=== PATIENT | female | born 1945 | race Caucasian/White ===

== ENCOUNTER 2016-09-10 21:58 | Emergency (ER) | payer OTHER ==
[~2016-09-10] VITALS: Ht 154.9 cm; Wt 73.0 kg
[2016-09-10] MEDS ORDERED: ACETAMINOPHEN ES 500 MG TABLET ONE (23:15)
[2016-09-10] MEDS ORDERED: ACETAMINOPHEN 325 MG TABLET PO ONE (23:30)
[2016-09-11 00:41] VITALS: BP 174/82
== END 2016-09-11 00:43 | disposition home or self-care (01) ==
LOC: ER 22:03
DX: M54.5 Low back pain (principal); G89.29 Other chronic pain; E11.9 Type 2 diabetes mellitus without complications
CPT/HCPCS: 99283; A4606; Z7610

== ENCOUNTER 2021-03-19 16:53 | Inpatient (IN) | payer OTHER ==
[~2021-03-19] VITALS: Ht 162.6 cm; Wt 62.1 kg
--- NOTE | 2021-03-19 17:30 | NUR ---
ER BED 3, C/O BACK PAIN, PLACED TO MONITOR, SALINE LOCK ESTABLISHED
--- NOTE | 2021-03-19 17:38 | NUR ---
SPOKE TO CAREGIVER ERICA, STATES CAN NO LONGER TAKE CARE OF THE PATIENT BECAUSE SHE USES DIAPER NOW. SO THEY WANT HER TO GO TO [facility].
--- NOTE | 2021-03-19 17:56 | NUR ---
WENT TO CT
[2021-03-19 18:21] LABS: BASOPHILS # (AUTO) 0.1 K/uL (0.0-0.2); BASOPHILS % (AUTO) 0.8 % (0.0-2.0); HEMATOCRIT 37 % (33-45); HEMOGLOBIN 12.2 g/dL (11.5-14.8); LYMPHOCYTES # (AUTO) 0.8 K/uL (0.8-4.8); LYMPHOCYTES % (AUTO) 10.5 % (20.0-44.0); MEAN CORPUSCULAR HGB CONC 33 g/dl (31.0-36.0); MEAN CORPUSCULAR VOLUME 86 fL (82-100); MONOCYTES % (AUTO) 12.6 % (2.0-12.0); NEUTROPHILS # (AUTO) 5.9 K/uL (1.8-8.9); NEUTROPHILS % (AUTO) 74.1 % (43.0-81.0); PLATELET COUNT (AUTO) 509 K/uL (150-450); RED BLOOD CELL COUNT(AUTO) 4.34 MIL/uL (4.0-5.2)
[2021-03-19 18:43] LABS: CALCIUM, SERUM 9.2 mg/dL (8.5-10.1); CREATININE 0.6 mg/dL (0.6-1.3)
[2021-03-19 18:49] LABS: ALBUMIN 2.5 g/dL (3.4-5.0); BILIRUBIN,DIRECT 0.1 mg/dL (0.0-0.2); BILIRUBIN,TOTAL 0.4 mg/dL (0.2-1.0); TOTAL PROTEIN, SERUM 7.1 g/dL (6.4-8.2)
--- NOTE | 2021-03-19 18:50 | NUR ---
PT UNABLE TO GIVE URINE, INFORMED
--- NOTE | 2021-03-19 18:51 | NUR ---
F/U UP CHEMISTRY, SPOKE TO JOHN
--- NOTE | 2021-03-19 18:56 | NUR ---
GAVE MOVESHEET TO ADMITTING FOR INSURANCE AUTH
[2021-03-19] MEDS ORDERED: IV NS 0.9% 1,000 ML IV ONE (19:00)
--- NOTE | 2021-03-19 19:00 | NUR ---
EMERGENCY ROOM PHYSICIAN ASSISTANT/MED RECON PATIENT UNABLE TO PROVIDE INFORMATION RE: HOME MEDICATION. CALLED AND SPOKE WITH CAREGIVER, ERICA. STATED " I DON'T HAVE IT WITH ME RIGHT NOW, BUT I WILL CALL OR VISIT ALICIA. TO PROVIDE THE INFORMATION.
--- NOTE | 2021-03-19 19:08 | NUR ---
IV removed. Catheter intact and site benign. Pressure and 4x4 applied to site. No bleeding noted.Patient discharged to home in stable condition. Written and verbal after care instructions given. Patient verbalizes understanding of instruction.
--- NOTE | 2021-03-19 19:36 | NUR ---
COVID SWAB COLLECTED AND SENT TO LAB
--- NOTE | 2021-03-19 20:43 | NUR ---
Patient is resting comfortably in bed with eyes closed. Easily aroused. VSS
[2021-03-19] MEDS ORDERED: Z GUARD REMEDY 2 OZ OINT TP PRN (21:30)
[2021-03-19] MEDS ORDERED: ONDANSETRON HCL/PF 4 MG/2 ML VIAL IVP PRN (21:30)
[2021-03-19] MEDS ORDERED: HYDROCODONE/APAP 5/325MG TABLET PO PRN (21:30)
[2021-03-19] MEDS ORDERED: MAGNESIUM HYDROXIDE 30 ML UDC PO PRN (21:30)
[2021-03-19] MEDS ORDERED: MORPHINE SULFATE INJ 2 MG/ML DISP.SYRIN IV PRN (21:30)
[2021-03-19] MEDS ORDERED: MAG HYDROX/AL HYDROX/SIMETH 30 ML UDC PO PRN (21:30)
[2021-03-19] MEDS ORDERED: ACETAMINOPHEN 325 MG TABLET PO PRN (21:30)
--- NOTE | 2021-03-19 21:44 | NUR ---
report given to drake on third floor
--- NOTE | 2021-03-19 22:02 | NUR ---
pt was transferred to [facility] in stable condition.
--- NOTE | 2021-03-19 22:32 | NUR ---
MS CABRAL Opening/Admitting Notes Patient arrived via [facility] at approximately 2102 accompanied by an EMT. Patient was not able to ambulate and was transferred from the [facility] to the bed with assistance. Patient was oriented to the staff and the unit. Patient was alert and oriented x1-2. Patient's on room air with no respiratory distress noted. Patient has an IV access on her left hand gauge #20, which is intact, patent, and flushing well. Patient's in no acute distress at this time. Will continue to monitor the patient. Addendum: 03/19/21 at 2324 by NATALIO GARCIA RN Report given by Nurse Abel
[2021-03-20] MEDS ORDERED: DEXTROSE 50%-WATER 50 ML DISP.SYRIN IV PRN (01:00)
[2021-03-20 03:16] VITALS: BP 146/89
[2021-03-20] MEDS: IV NS 0.9% 1,000 ML IV PRN (03:27)
--- NOTE | 2021-03-20 06:26 | NUR ---
MS RN Notes Patient's blood sugar at 0624 was 92mg/dL. Will continue to monitor the patient.
[2021-03-20 06:29] LABS: BASOPHILS # (AUTO) 0.1 K/uL (0.0-0.2); BASOPHILS % (AUTO) 1.1 % (0.0-2.0); EOSINOPHILS % (AUTO) 3.4 % (0.0-6.0); HEMATOCRIT 35 % (33-45); HEMOGLOBIN 11.8 g/dL (11.5-14.8); LYMPHOCYTES # (AUTO) 0.9 K/uL (0.8-4.8); LYMPHOCYTES % (AUTO) 16.7 % (20.0-44.0); MEAN CORPUSCULAR HGB CONC 33 g/dl (31.0-36.0); MEAN CORPUSCULAR VOLUME 86 fL (82-100); MONOCYTES # (AUTO) 0.8 K/uL (0.1-1.30); MONOCYTES % (AUTO) 15.6 % (2.0-12.0); NEUTROPHILS # (AUTO) 3.4 K/uL (1.8-8.9); NEUTROPHILS % (AUTO) 63.2 % (43.0-81.0); PLATELET COUNT (AUTO) 449 K/uL (150-450); WHITE BLOOD COUNT (AUTO) 5.4 K/uL (4.3-11.0)
[2021-03-20] MEDS: BLOOD SUGAR DIAGNOSTIC 1 EACH STRIP IN SCH ×4 (06:35→22:30)
--- NOTE | 2021-03-20 06:51 | NUR ---
MS RN Closing Notes Patient was last seen awake in bed resting. Patient was alert and oriented x1-2. Patient's on room air with no respiratory distress noted. Patient has an IV access on her left hand gauge #20 which is running normal saline at 50ml/hour. Patient's in no acute distress at this time. Will endorse care to the day shift nurse.
[2021-03-20 07:32] LABS: CALCIUM, SERUM 9.3 mg/dL (8.5-10.1); CARBON DIOXIDE 23 mmol/L (21-32); CHLORIDE 101 mmol/L (98-107); CREATININE 0.5 mg/dL (0.6-1.3); GLUCOSE 85 mg/dL (74-106); MAGNESIUM 1.5 mg/dL (1.8-2.4); PHOSPHORUS 3.2 mg/dL (2.5-4.9); POTASSIUM 3.6 mmol/L (3.5-5.1); SODIUM SERUM 135 mmol/L (136-145); UREA NITROGEN, BLOOD 9 mg/dL (7-18)
[2021-03-20 07:46] LABS: CHOLESTEROL 131 mg/dL (<200); HDL CHOLESTEROL 24 mg/dL (40-60); LDL 78 mg/dL (0-99); THYROID STIMULATING HORMONE 1.795 uIU/mL (0.358-3.74); TRIGLYCERIDES 113 mg/dL (30-150)
[2021-03-20 08:00] VITALS: BP 137/80
[2021-03-20] MEDS: PANTOPRAZOLE 40 MG TABLET.DR PO SCH (08:54)
[2021-03-20] MEDS: NICOTINE PATCH (7MG) 7 MG PATCH.TD24 TD SCH (08:54)
[2021-03-20] MEDS: INSULIN REGULAR, HUMAN 100 UNIT/ML 3 ML VIAL SQ PRN ×3 (12:35→22:29)
[2021-03-20] MEDS: Magnesium 1GM/D5W 100ML PREMIX 100 ML IV SCH ×2 (12:52→14:27)
[2021-03-20 16:00] VITALS: BP 137/79
--- NOTE | 2021-03-20 16:30 | NUR ---
UA SENT.VERY CONFUSED. SIDE RAILS UP.BED ALARM ON.
--- NOTE | 2021-03-20 16:54 | NUR ---
MG REPLACEMENT GIVEN IV,VERY CONFUSED AND WAITING STIIL TO OBTAIN MED LIST FROM CAREGIVER.SIDE4 RAILS UP. BED ALARM ON.
[2021-03-20] MEDS ORDERED: ATOR10TA PO (17:51)
[2021-03-20] MEDS ORDERED: METF-440 PO (17:51)
[2021-03-20] MEDS ORDERED: CARV12.52 PO (17:51)
[2021-03-20] MEDS ORDERED: LEVE500T20 PO (17:51)
[2021-03-20] MEDS ORDERED: BENA10TA74 PO (17:51)
[2021-03-20] MEDS ORDERED: HYDR-4303 PO (17:51)
[2021-03-20] MEDS ORDERED: HYDR-3980 PO (17:51)
[2021-03-20] MEDS ORDERED: ACET-868 PO (17:52)
[2021-03-20] MEDS ORDERED: METO25TA6 PO (17:53)
[2021-03-20] MEDS ORDERED: FAMO20TA8 PO (17:53)
[2021-03-20 19:13] LABS: BILIRUBIN,URINE NEGATIVE (NEGATIVE); COLOR,URINE YELLOW (YELLOW); LEUKOCYTE ESTERASE ,URINE SMALL (NEGATIVE); NITRITE, URINE NEGATIVE (NEGATIVE); PH,URINE 5.5 (5.0-8.0); PROTEIN,URINE NEGATIVE (NEGATIVE); UGLUCOSE 500 MG/DL mg/dL (NEGATIVE)
--- NOTE | 2021-03-20 19:34 | NUR ---
MS RN Opening Notes Patient was last seen awake in bed resting. Patient was alert and oriented x1-2. Patient's on room air with no respiratory distress noted. Patient has an IV access on her left hand gauge #20 which is running normal saline at 50ml/hour. Patient's in no acute distress at this time. Safety measures in place: Bed locked, bed alarm on, side rails up x3, and call light within reach. Will continue to monitor the patient.
[2021-03-20 19:36] LABS: BACTERIA,URINE 4+ /HPF (None Seen); RBC,URINE 21-50 /HPF (0-2); SQUAMOUS EPITHELIAL CELL,UR Few /HPF (None Seen); WBC,URINE 51-80 /HPF (0-3)
[2021-03-20 20:00] VITALS: BP 136/84
--- NOTE | 2021-03-20 22:04 | NUR ---
MS RN Notes Patient's blood sugar at 2201 was 140mg/dL.
[2021-03-21 06:22] LABS: BASOPHILS # (AUTO) 0.1 K/uL (0.0-0.2); EOSINOPHILS % (AUTO) 2.6 % (0.0-6.0); HEMATOCRIT 35 % (33-45); HEMOGLOBIN 11.6 g/dL (11.5-14.8); LYMPHOCYTES # (AUTO) 0.9 K/uL (0.8-4.8); LYMPHOCYTES % (AUTO) 14.8 % (20.0-44.0); MEAN CORPUSCULAR HGB CONC 34 g/dl (31.0-36.0); MEAN CORPUSCULAR VOLUME 86 fL (82-100); MONOCYTES # (AUTO) 0.9 K/uL (0.1-1.30); MONOCYTES % (AUTO) 15.3 % (2.0-12.0); NEUTROPHILS % (AUTO) 66.3 % (43.0-81.0); PLATELET COUNT (AUTO) 475 K/uL (150-450); RED BLOOD CELL COUNT(AUTO) 4.04 MIL/uL (4.0-5.2); WHITE BLOOD COUNT (AUTO) 6.1 K/uL (4.3-11.0)
[2021-03-21] MEDS: IV NS 0.9% 1,000 ML IV PRN (06:27)
[2021-03-21 06:39] LABS: CALCIUM, SERUM 8.7 mg/dL (8.5-10.1); CREATININE 0.6 mg/dL (0.6-1.3); MAGNESIUM 1.7 mg/dL (1.8-2.4); PHOSPHORUS 2.6 mg/dL (2.5-4.9); POTASSIUM 3.8 mmol/L (3.5-5.1)
[2021-03-21] MEDS: BLOOD SUGAR DIAGNOSTIC 1 EACH STRIP IN SCH ×4 (07:24→21:09)
[2021-03-21] MEDS: INSULIN REGULAR, HUMAN 100 UNIT/ML 3 ML VIAL SQ PRN ×4 (07:25→21:11)
--- NOTE | 2021-03-21 07:32 | NUR ---
RN OPENING NOTE PT AWAKE IN BED RESTING. ON RA WITH NO SOB OR RESPIRATORY DISTRESS PRESENT. A/O X2 AND ARMENIAN SPEAKING. NO COMPLAINT OF PAIN OR NAUSEA PRESENT. NO CIRCUIT BREAKER ASSEMBLER PRESENT. NO EDEMA PRESENT. ON BEDREST WITH DIAPER PRESENT. SKIN IS INTACT.ON CARDIAC DIET. IV PRESENT ON L HAND 20G WITH NS RUNNING AT 50 ML/HR. LABS AND ORDERS REVIEWED. SAFETY MEASURES IN PLACE. SIDE RAILS RAISED. BED LOWERED. CALL LIGHT WITHIN REACH. WILL CONTINUE TO MONITOR.
[2021-03-21 08:00] VITALS: BP 142/100
[2021-03-21] MEDS: NICOTINE PATCH (7MG) 7 MG PATCH.TD24 TD SCH (08:52)
[2021-03-21] MEDS: PANTOPRAZOLE 40 MG TABLET.DR PO SCH (08:52)
[2021-03-21] MEDS: Magnesium 1GM/D5W 100ML PREMIX 100 ML IV SCH ×2 (08:52→10:53)
[2021-03-21 11:19] LABS: EOSINOPHILS % (MANUAL) 3 % (0-4); LYMPHOCYTES % (MANUAL) 16 % (16-48); MONOCYTES % (MANUAL) 13 % (0-11.0); NEUTROPHILS % (MANUAL) 62 (42-76); REACTIVE LYMPHOCYTES 6 % (0-0)
[2021-03-21 16:00] VITALS: BP 102/62
--- NOTE | 2021-03-21 19:06 | NUR ---
RN CLOSING NOTE PT AWAKE IN BED RESTING. ON RA WITH NO SOB OR RESPIRATORY DISTRESS PRESENT. A/O X2 AND ARABIC SPEAKING. NO COMPLAINT OF PAIN OR NAUSEA PRESENT. NO BOUNTY HUNTER PRESENT. NO EDEMA PRESENT. ON BEDREST WITH DIAPER PRESENT. SKIN IS INTACT.ON CARDIAC DIET. IV PRESENT ON L HAND 20G WITH NS RUNNING AT 50 ML/HR. LABS AND ORDERS REVIEWED. ROUTINE MEDS GIVEN SAFETY MEASURES IN PLACE. SIDE RAILS RAISED. BED LOWERED. CALL LIGHT WITHIN REACH. REPORT GIVEN TO NIGHT NURSE FOR ROYER.
--- NOTE | 2021-03-21 19:30 | NUR ---
MS RN OPENING NOTES RECEIVED PATIENT IN BED, AWAKE, A&O X 1, NOT IN ANY FORM OF ACUTE DISTRESS NOTED. ON ROOM AIR, TOLERATING WELL. NO SOB NOTED. IV ACCESS ON LEFT HAND NOTED TO BE LEAKING. REMOVED ASEPTICALLY, REINSERTED AN IV CATHETER OF G#22 ON PATIENT'S RIGHT HAND. PATENT, RESTARTED IV FLUID OF NS 1L AT 50 CC/HR, INFUSING WELL. NO COMPLAINTS OF PAIN AT THIS TIME. SAFETY PRECAUTIONS OBSERVED: BED ON LOWEST LOCKED POSITION, KEPT SIDE RAILS UP X 2. AFIA LIGHT WITHIN EASY REACH. WILL CONTINUE TO MONITOR PATIENT'S STATUS.
[2021-03-21 20:00] VITALS: BP 138/77
--- NOTE | 2021-03-21 20:55 | NUR ---
RN NOTES URINE CULTURE RESULT IN, RELAYED TO [facility]LEX SEARS ORDER MADE AND CARRIED OUT.
--- NOTE | 2021-03-21 22:00 | NUR ---
RN NOTES BLOOD GLUCOSE CHECKED RESULTS 199, REGULAR INSULIN 3 UNITS GIVEN ORDERED.
--- NOTE | 2021-03-22 06:29 | NUR ---
MS RN CLOSING NOTES PATIENT IN BED, AWAKE, A&O X 1-2, NOT IN ANY FORM OF ACUTE DISTRESS NOTED. ON ROOM AIR, TOLERATING WELL. NO SOB NOTED. IV ACCESS ON PATIENT'S RIGHT HAND G#22. PATENT ONGOING IV FLUID OF NS 1L AT 50 CC/HR, INFUSING WELL. NO COMPLAINTS OF PAIN AT THIS TIME. SAFETY PRECAUTIONS OBSERVED AND MAINATINED DURING THE SHIFT: BED ON LOWEST LOCKED POSITION, KEPT SIDE RAILS UP X 2. AFIA LIGHT WITHIN EASY REACH. WILL ENDORSE TO MORNING NURSE FOR ROYER.
--- NOTE | 2021-03-22 06:31 | NUR ---
RN NOTES BLOOD GLUCOSE CHECKED RESULTS 113 MG/DL, NO INSULIN COVERAGE NEEDED.
[2021-03-22] MEDS: BLOOD SUGAR DIAGNOSTIC 1 EACH STRIP IN SCH ×2 (06:50→11:47)
[2021-03-22 07:14] LABS: CALCIUM, SERUM 8.6 mg/dL (8.5-10.1); CREATININE 0.6 mg/dL (0.6-1.3); MAGNESIUM 1.7 mg/dL (1.8-2.4); POTASSIUM 4.2 mmol/L (3.5-5.1)
--- NOTE | 2021-03-22 08:00 | NUR ---
MS RN OPENING NOTES RECEIVED PATIENT IN BED, RESTING. EASY TO AROUSE. A&O X 1-2. STABLE ON ROOM AIR - NO SOB NOTED, NO DISTRESS/DISCOMFORT NOTED. IV ACCESS TO RIGHT HAND - RUNNING NS @ 50 ML/HR. SAFETY MEASURES IMPLEMENTED. CALL LIGHT WITHIN REACH. WILL CONTINUE TO MONITOR.
[2021-03-22 08:16] VITALS: BP 150/78
[2021-03-22] MEDS: PANTOPRAZOLE 40 MG TABLET.DR PO SCH (08:36)
[2021-03-22] MEDS: CEPHALEXIN MONOHYDRATE 500 MG CAPSULE PO SCH ×2 (08:56→17:00)
[2021-03-22] MEDS: NICOTINE PATCH (7MG) 7 MG PATCH.TD24 TD SCH (08:56)
[2021-03-22] MEDS: Magnesium 1GM/D5W 100ML PREMIX 100 ML IV SCH ×2 (09:28→10:23)
[2021-03-22] MEDS: INSULIN REGULAR, HUMAN 100 UNIT/ML 3 ML VIAL SQ PRN (11:48)
[2021-03-22 16:24] VITALS: BP_SYST 109; BP_SYST 149; BP_DIAS 43; BP_DIAS 81
--- NOTE | 2021-03-22 17:20 | NUR ---
MS COIL BUILDER NOTE PATIENT DISCHARGED VIA AMBULANCE @ 1715. PATIENT STABLE, A/O X2, CONFUSED. STABLE ON ROOM AIR. NO SOB, NO DISTRESS/DISCOMFORT NOTED. ALL EXITCARE AND EDUCATION ATTEMPTED TO GO OVER WITH PATIENT - PATIENT SOMEWHAT CONFUSED. REPORT GIVEN TO TATYANA AT [facility]. IV REMOVED, WRISTBAND REMOVED. PATIENT ACCOMPANIED TO LOBBY BY EMT'S.
== END 2021-03-22 14:15 | DRG 640 ==
LOC: ER 16:53 → MED 21:42
PROVIDERS: ADMIT Registered Nurse; ATTEND Internal Medicine
DX: E86.1 Hypovolemia (principal); E43 Unspecified severe protein-calorie malnutrition; M48.50XA Collapsed vertebra, not elsewhere classified, site unspecified, initial encounter for fracture; M54.2 Cervicalgia; E87.2 Acidosis; E87.6 Hypokalemia; R62.7 Adult failure to thrive; E11.9 Type 2 diabetes mellitus without complications; R29.6 Repeated falls; G89.29 Other chronic pain; I71.4 Abdominal aortic aneurysm, without rupture; M54.9 Dorsalgia, unspecified; K44.9 Diaphragmatic hernia without obstruction or gangrene; Z68.23 Body mass index [BMI] 23.0-23.9, adult; Z20.822 Contact with and (suspected) exposure to COVID-19; J43.9 Emphysema, unspecified; F17.200 Nicotine dependence, unspecified, uncomplicated; J43.8 Other emphysema; M41.9 Scoliosis, unspecified; N28.1 Cyst of kidney, acquired
CPT/HCPCS: 36415; 72125-TC; 72128-TC; 72131-TC; 80048-TC; 80061-TC; 80076-TC; 81001; 82962-TC; 83735-TC; 84100-TC; 84443-TC; 85025-TC; 87081-TC; 87086-TC; 87186-TC; 97112-TC; 97116-TC; 97530-TC; A6403; C9803; G0378; J1815; J3475; J7030